=== PATIENT | female | born 2005 | race Two or more races ===

== ENCOUNTER 2024-03-01 23:42 | Emergency (ER) | payer MEDICAID ==
[~2024-03-01] VITALS: Ht 165.1 cm; Wt 103.9 kg
[2024-03-02] MEDS ORDERED: LACTULOSE 20Gm/30ML SOLN ONE (01:30)
[2024-03-02] MEDS ORDERED: FLEET ENEMA(ADULT) 135 ML PR ONE (01:30)
[2024-03-02] MEDS: LACTULOSE 20Gm/30ML SOLN PO ONE (01:31)
[2024-03-02] MEDS: FLEET ENEMA(ADULT) 135 ML PR ONE (01:31)
[2024-03-02] MEDS ORDERED: LACT10SO3 PO (02:21)
[2024-03-02 02:32] VITALS: BP 129/84; PULSE 66; RESP 20; TEMP 97.6; O2SAT 97
== END 2024-03-02 02:37 | disposition home or self-care (01) ==
LOC: ER 23:42
DX: K59.00 Constipation, unspecified (principal)
CPT/HCPCS: 74018